=== PATIENT | male | born 1990 ===

== ENCOUNTER 2023-09-08 00:02 | Emergency (ER) | payer BC, OTHER ==
[2023-09-08] MEDS ORDERED: Bupivacaine 0.5% 10 ML SDV INJECT ONE (00:37)
[2023-09-08] MEDS ORDERED: Lidocaine 1% 5 ML VIAL INJECT ONE (00:37)
[2023-09-08] MEDS ORDERED: ceFAZolin 1 GM Vial IVPUSH ONE (01:11)
[2023-09-08] MEDS ORDERED: Sodium Chloride 0.9% 10 ML Syringe FLUSH PRN (01:11)
[2023-09-08] MEDS ORDERED: Take Home: oxyCODONE HCl 5 MG Tab, 5 Tab Pack PO ONE (01:46)
== END 2023-09-08 02:00 | disposition home or self-care (01) ==
LOC: LL.ED 00:02
DX: S68.119A Complete traumatic metacarpophalangeal amputation of unspecified finger, initial encounter (principal); W23.0XXA Caught, crushed, jammed, or pinched between moving objects, initial encounter
CPT/HCPCS: 64450; 73140-F6; 96374; 99283-25; A9270-GY; J0690; J3490